=== PATIENT | male | born 1960 | race Caucasian/White ===

== ENCOUNTER → 2016-07-13 | Outpatient (CLI) | payer OTHER ==
[2016-05-08 19:38] VITALS: BP 143/98
[~2016-07-13] MED LIST: ALPR1TAB6 PO; GABA-586 PO; OXYC20TA PO; TAMS0.4C97 PO
--- NOTE | 2016-07-13 15:32 | KCIC ---
PROCEDURE Thoracic and lumbar spine radiographs. HISTORY Pain, post injury 3 weeks ago COMPARISON None FINDINGS Thoracic spine: Three views of the thoracic spine are submitted. There is mild mid thoracic levoscoliosis. Thoracic vertebral body stature and AP alignment are overall adequate by radiographs. There is mild inferior thoracic spondylosis. Lumbar spine radiographs: Five views of the lumbar spine are submitted. There is superior L1 compression deformity. There is multilevel lumbar facet degenerative change. There is multilevel mild lumbar spondylosis. There is atherosclerotic calcification of the abdominal aorta. IMPRESSION There is superior L1 compression deformity of uncertain chronicity. If there is point tenderness at this level, findings may be due to acute compression injury. Electronically signed by: Kan Vicente MD (Jul 13, 2016 15:30:37)
== END | disposition home or self-care (01) ==
LOC: KCIC 13:58
PROVIDERS: ATTEND Family Medicine
DX: M47.894 Other spondylosis, thoracic region (principal); I70.0 Atherosclerosis of aorta; S34.101A Unspecified injury to L1 level of lumbar spinal cord, initial encounter; M47.896 Other spondylosis, lumbar region; X58.XXXA Exposure to other specified factors, initial encounter; Y93.89 Activity, other specified; Y92.89 Other specified places as the place of occurrence of the external cause; Y99.8 Other external cause status
CPT/HCPCS: 72072; 72110

== ENCOUNTER → 2016-07-17 | Outpatient (CLI) | payer OTHER ==
[2016-05-08 19:38] VITALS: BP 143/98
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
== END | disposition home or self-care (01) ==
LOC: KCIC 11:12
PROVIDERS: ATTEND Family Medicine
DX: M54.9 Dorsalgia, unspecified (principal); V89.2XXA Person injured in unspecified motor-vehicle accident, traffic, initial encounter; Y93.89 Activity, other specified; Y92.89 Other specified places as the place of occurrence of the external cause; Y99.8 Other external cause status
CPT/HCPCS: 72050; 72072

== ENCOUNTER 2016-12-07 02:02 | Inpatient (IN) | payer MEDICARE, OTHER ==
[~2016-12-07] VITALS: Ht 208.3 cm; Wt 74.4 kg
[2016-12-07] VITALS (14 sets, daily range): BP systolic 104–158; BP diastolic 57–93
[2016-12-07] MEDS ORDERED: HALOPERIDOL LACTATE 5 MG/ML VIAL. ONE (02:14)
[2016-12-07] MEDS ORDERED: HALOPERIDOL LACTATE 5 MG/ML VIAL. IM ONE (02:30)
[2016-12-07] MEDS ORDERED: IV NORMAL SALINE 1000ML BAG 1,000 ML IV ONE (02:30)
[2016-12-07 02:46] LABS: BILIRUBIN,URINE NEGATIVE (NEG); GLUCOSE,URINE NEGATIVE (NEG); NITRITE,URINE NEGATIVE (NEG); PROTEIN,URINE 30 mg/dL (NEG-TRACE); UROBILINOGEN,URINE 0.2 mg/dL (0.2 mg/dL)
[2016-12-07 02:50] LABS: BARBITURATES NEG (NEG); BASO # 0.1 x10^3/uL (0.0-0.2); BASO % 1 % (0-3); BENZODIAZEPINES NEG (NEG); CANNABINOIDS POS (NEG); COCAINE NEG (NEG); EOS % 0 % (0-3); HEMOGLOBIN 16.7 g/dL (13.0-17.5); LYMPH # 3.7 x10^3/uL (1.0-4.8); LYMPH % 26 % (24-48); MEAN CORPUSCULAR HEMOGLOBIN 32 pg (25-35); MEAN CORPUSCULAR HGB CONC 33 g/dL (31-37); MEAN CORPUSCULAR VOLUME 95 fL (79-100); METHADONE NEG (NEG); MONO % 10 % (0-9); NEUT % 63 % (31-73); OPIATES NEG (NEG); PHENCYCLIDINE NEG (NEG); PLATELET COUNT 214 x10^3/uL (140-400); RED BLOOD COUNT 5.28 x10^6/uL (4.30-5.70); RED CELL DISTRIBUTION WIDTH 14.5 % (11.5-14.5); WHITE BLOOD COUNT 14.3 x10^3/uL (4.0-11.0)
[2016-12-07] MEDS ORDERED: MULTIVIT INFUSN,ADULT 4,VIT K 10 ML, FOLIC ACID 1 MG, THIAMINE 100 MG in IV NORMAL SALI... IV ONE (03:00)
[2016-12-07 03:04] LABS: ALBUMIN 4.6 g/dL (3.4-5.0); ALBUMIN/GLOBULIN RATIO 1.1 (1.0-1.7); CALCIUM 9.8 mg/dL (8.5-10.1); CREATININE 1.3 mg/dL (0.7-1.3); GFR 56.9; TOTAL BILIRUBIN 1.1 mg/dL (0.2-1.0); TOTAL PROTEIN 8.9 g/dL (6.4-8.2)
[2016-12-07 03:13] LABS: ETHANOL < 10 mg/dL (0-10)
[2016-12-07 03:15] LABS: POTASSIUM 2.8 mmol/L (3.5-5.1)
[2016-12-07] MEDS ORDERED: ACETAMINOPHEN 325 MG TABLET. PO PRN (03:30)
[2016-12-07] MEDS ORDERED: cloNIDine HCL 0.1 MG TABLET PO PRN (03:30)
[2016-12-07] MEDS ORDERED: HALOPERIDOL LACTATE 5 MG/ML VIAL. IVP PRN (03:30)
[2016-12-07] MEDS ORDERED: ONDANSETRON PF 4 MG/2 ML VIAL. IV PRN ×2 (03:30→07:31)
[2016-12-07] MEDS ORDERED: diphenhydrAMINE 50 MG/ML VIAL IVP PRN (03:30)
[2016-12-07 03:31] LABS: BACTERIA,URINE FEW /HPF (0-FEW); RBC,URINE 0 /HPF (0-2); SQUAMOUS EPITHELIAL CELL,UR FEW /LPF
--- NOTE | 2016-12-07 03:46 | RAD ---
CT head without contrast: Reason for examination: Altered mental status. Comparison is made to previous study dated 11/10/2015. Axial images were obtained through the brain. No contrast was administered. Exposure: One or more of the following individualized dose reduction techniques were utilized for this examination: 1. Automated exposure control 2. Adjustment of the mA and/or kV according to patient size 3. Use of iterative reconstruction technique. Ventricular systems are symmetric without midline shift. There is no evidence of intracranial hemorrhage or infarct. There is suggestion of some subtle decreased density in the right frontal lobe. Further evaluation with MRI should be considered. No other focal lesions are seen in the brain. No abnormalities are seen at the orbits. The paranasal sinuses are clear. Mastoid air cells are clear. No acute abnormality seen in the skull. There are postop changes anterior to the frontal sinuses. IMPRESSION: Subtle decreased density suggested in the right frontal lobe. Further evaluation with MRI should be considered. No other focal abnormalities seen in the brain. Electronically signed by: Yesenia Ybarra MD (12/07/2016 3:43 AM)
[2016-12-07] MEDS: POTASSIUM CHLORIDE 10MEQ 100 ML IV SCH ×4 (04:37→09:47)
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
[2016-12-07] MEDS: IV NORMAL SALINE 1000ML BAG 1,000 ML IV SCH ×3 (05:13→22:21)
[2016-12-07] MEDS ORDERED: PNEUMOCOCCAL VAX SCREEN BY RX. MC ONE (06:15)
--- NOTE | 2016-12-07 06:18 | EKG ---
[facility] [address] [place] [id number] Test Date: 2016-12-07 Test Time: 02:08:32 Pat Name: BEAN HERRERA Department: Room: 110 1 Gender: M [employer] Controller: CARI EMT : 1960 Requested By: ANNAMARIA US Order Number: [id number] Reading MD: Abi Rubi Measurements Intervals [place] Rate: 108 P: WI: QRS: -71 QRSD: 128 T: 28 QT: 340 QTc: 459 Interpretive Statements SINUS TACHYCARDIA ABNORMAL LEFT AXIS DEVIATION NON SPECIFIC INTRAVENTRICULAR BLOCK RVH WITH REPOLARIZATION ABNORMALITY QRS(T) CONTOUR ABNORMALITY CONSIDER INFERIOR MYOCARDIAL DAMAGE RI6.01 Unconfirmed report No previous ECG available for comparison Electronically Signed On 12-10-2016 22:18:59 CDT by Abi Rubi
--- NOTE | 2016-12-07 07:03 | RAD ---
Portable chest, 12/07/2016: History: Altered mental status The heart size and pulmonary vascularity are normal. No pulmonary infiltrates are seen. There is no evidence of pleural fluid. IMPRESSION: No acute cardiopulmonary abnormality is detected.
[2016-12-07] MEDS ORDERED: ALPRAZolam 1 MG TABLET PO PRN (07:45)
[2016-12-07] MEDS ORDERED: oxyCODONE IR 5 MG TABLET PO PRN (07:45)
--- NOTE | 2016-12-07 08:09 | PDOC1 ---
History and Physical Date of Admission Date of Admission DATE: 12/07/16 TIME: 08:07 Identification/Chief Complaint Chief Complaint confusion, erratic behavior Problems: Source Source: Caregiver, Chart review, Patient History of Present Illness History of Present Illness 56 y.o poor historian as is still clearly confused as I see him in ICU today, Was sent in by EMS when his 2 friends whom he has been living with in a hotel room, noticed him to have erratic behavior, aggressive,EMS found him in the bathroom with erratic behavior. He is unable to provide history due to clinical condition. Today he mentions [place], restless, sitter at bedside, ON CIWA. ETOH < 10, UDS neg, UA ,clean, labs elevated LFTs, mild hypokalemia (3.2) and WBC 14. Crea 0.9 Past Medical History Cardiovascular: CHF, HTN Renal/: Prostate Ca. Past Surgical History Past Surgical History: Other (unknown) Family History Family History: Family History Unknown Social History Smoke: No ALCOHOL: heavy Drugs: Other (amphetamines) Current Problem List Problem List Problems Medical Problems: (1) Alcohol withdrawal delirium Status: Acute (2) Hypertension Status: Acute (3) Hypokalemia Status: Acute (4) Right frontal lobe lesion Status: Acute (5) Tachycardia Status: Acute Problems: Current Medications Current Medications Current Medications Haloperidol Lactate (Haldol) 5 mg STK-MED ONCE .ROUTE ; Start 12/07/16 at 02:14; Stop 12/07/16 at 02:15; Status DC Lorazepam (Ativan) 2 mg STK-MED ONCE .ROUTE ; Start 12/07/16 at 02:15; Stop at 02:16; Status DC Haloperidol Lactate (Haldol) 5 mg 1X ONCE IM Last administered on 12/07/16 02: 30; Start 12/07/16 at 02:30; Stop 12/07/16 at 02:31; Status DC Lorazepam (Ativan) 1 mg 1X ONCE IM Last administered on 12/07/16 02:30; Start 12/07/16 at 02:30; Stop 12/07/16 at 02:31; Status DC Sodium Chloride 1,000 ml @ 1,000 mls/hr 1X ONCE IV Last administered on 03:00; Start 12/07/16 at 02:30; Stop 12/07/16 at 03:29; Status DC Diazepam (Valium) 5 mg 1X ONCE IV Last administered on 12/07/16 02:55; Start 12/07/16 at 02:45; Stop 12/07/16 at 02:46; Status DC Multivitamins 10 ml/Folic Acid 1 mg/Thiamine HCl 100 mg/Sodium Chloride 1,011.2 ml @ 1,000 mls/ hr 1X ONCE IV Last administered on 12/07/16 03:07; Start 12/07 at 03:00; Stop 12/07/16 at 04:00; Status DC Ondansetron HCl (Zofran) 4 mg PRN Q8HRS PRN IV NAUSEA/VOMITING; Start 12/07/16 at 03:30; Stop 12/07/16 at 07:33; Status DC Sodium Chloride 1,000 ml @ 125 mls/hr Q8H IV Last administered on 12/07/16 05: 13; Start 12/07/16 at 03:30; Stop 12/08/16 at 03:29 Acetaminophen (Tylenol) 650 mg PRN Q4HRS PRN PO FEVER; Start 12/07/16 at 03:30; Stop 12/08/16 at 03:29 Multivitamins 10 ml/Thiamine HCl 100 mg/Folic Acid 1 mg/Sodium Chloride 1,011.2 ml @ 100 mls/ hr DAILY IV ; Start 12/07/16 at 09:00; Stop 12/12/16 at 08:59 Haloperidol Lactate (Haldol) 5 mg PRN Q4HRS PRN IVP Hallucinatns,Confusn, Delirium; Start 12/07/16 at 03:30 Diphenhydramine HCl (Benadryl) 25 mg PRN Q15MIN PRN IVP EPS symptoms 2'Haldol admin; Start 12/07/16 at 03:30 Clonidine HCl (Catapres) 0.1 mg PRN Q1HR PRN PO SBP > 180 or DBP > 100, MRX3; Start 12/07/16 at 03:30 Diazepam (Valium) 5 mg PRN Q5MIN PRN IV COMM; Start 12/07/16 at 03:30 Diazepam (Valium) 10 mg PRN Q5MIN PRN IV COMM Last administered on 12/07/16 05: 42; Start 12/07/16 at 03:30 Potassium Chloride 100 ml @ 100 mls/hr Q1H IV Last administered on 12/07/16 07 :20; Start 12/07/16 at 04:30; Stop 12/07/16 at 08:29 Pneumococcal Polyvalent Vaccine (Do NOT chart on this placeholder) 1 each 1X ONCE MC ; Start 12/07/16 at 06:15; Stop 12/07/16 at 06:16; Status UNV Pneumococcal Polyvalent Vaccine (Pneumovax 23) 0.5 ml ONCE ONCE VAX IM ; Start 12/07/16 at 09:00; Stop 12/07/16 at 09:01 Ondansetron HCl (Zofran) 4 mg PRN Q6HRS PRN IV NAUSEA/VOMITING; Start 12/07/16 at 07:31; Stop 12/08/16 at 07:30 Alprazolam (Xanax) 1 mg PRN Q6HRS PRN PO ANXIETY / AGITATION; Start 12/07/16 at 07:45 Tamsulosin HCl (Flomax) 0.4 mg DAILY PO ; Start 12/07/16 at 09:00 Gabapentin (Neurontin) 300 mg TID PO ; Start 12/07/16 at 09:00 Oxycodone HCl (Roxicodone) 20 mg PRN Q6HRS PRN PO PAIN; Start 12/07/16 at 07:45 Active Scripts Active Reported Flomax (Tamsulosin Hcl) 0.4 Mg Cap.er.24h 0.4 Mg PO DAILY Alprazolam 1 Mg Tablet 1 Mg PO PRN Q6HRS PRN Neurontin (Gabapentin) 300 Mg Capsule 300 Mg PO TID Oxycodone Hcl 20 Mg Tablet 20 Mg PO PRN QID PRN Allergies Allergies: Coded Allergies: fentanyl (Unverified Adverse Reaction, Intermediate, "patches give me headches", 05/08/16) ROS Review of System cant assess, confused Physical Exam General: Alert, Cooperative, No acute distress, Other HEENT: PERRLA, EOMI Lungs: Clear to auscultation, Normal air movement Heart: S1S2, RRR, no thrills, no rubs, no gallops Cardiovascular: S1, S2 Abdomen: Normal bowel sounds, Soft, No tenderness, No hepatosplenomegaly, No masses Male Genitals Exam: normal genitalia, normal prostate Rectal Exam: not examined PELVIC: Nml ext genitalia Extremities: No clubbing, No cyanosis, No edema, Normal pulses, No tenderness/ swelling Skin: No rashes, No breakdown, No significant lesion Neuro: Normal gait, Normal speech, Strength at 5/5 X4 ext, Normal tone, Sensation intact, Cranial nerves 3-12 NL, Reflexes 2+ Psych/Mental Status: Other (confused) Vitals Vitals Vital Signs Date Time Temp Pulse Resp B/P (MAP) Pulse Ox O2 Delivery O2 Flow Rate FiO2 12/07/16 07:21 98.0 85 16 126/88 (101) 98 Room Air 98.0 Labs Labs Laboratory Tests Test 12/07/16 02:22 White Blood Count 14.3 x10^3/uL (4.0-11.0) Red Blood Count 5.28 x10^6/uL (4.30-5.70) Hemoglobin 16.7 g/dL (13.0-17.5) Hematocrit 50.0 % (39.0-53.0) Mean Corpuscular Volume 95 fL (79-100) Mean Corpuscular Hemoglobin 32 pg (25-35) Mean Corpuscular Hemoglobin Concent 33 g/dL (31-37) Red Cell Distribution Width 14.5 % (11.5-14.5) Platelet Count 214 x10^3/uL (140-400) Neutrophils (%) (Auto) 63 % (31-73) Lymphocytes (%) (Auto) 26 % (24-48) Monocytes (%) (Auto) 10 % (0-9) Eosinophils (%) (Auto) 0 % (0-3) Basophils (%) (Auto) 1 % (0-3) Neutrophils # (Auto) 9.0 x10^3uL (1.8-7.7) Lymphocytes # (Auto) 3.7 x10^3/uL (1.0-4.8) Monocytes # (Auto) 1.5 x10^3/uL (0.0-1.1) Eosinophils # (Auto) 0.0 x10^3/uL (0.0-0.7) Basophils # (Auto) 0.1 x10^3/uL (0.0-0.2) Urine Collection Type Unknown Urine Color Thelma Urine Clarity Clear Urine pH 6.0 Urine Specific [place] 1.025 Urine Protein 30 mg/dL (NEG-TRACE) Urine Glucose (UA) Negative mg/dL (NEG) Urine Ketones (Stick) Negative mg/dL (NEG) Urine Blood Negative (NEG) Urine Nitrite Negative (NEG) Urine Bilirubin Negative (NEG) Urine Urobilinogen Dipstick 0.2 mg/dL (0.2 mg/dL) Urine Leukocyte Esterase Negative (NEG) Urine RBC 0 /HPF (0-2) Urine WBC 1-4 /HPF (0-4) Urine Squamous Epithelial Cells Few /LPF Urine Bacteria Few /HPF (0-FEW) Urine Hyaline Casts Few /HPF Urine Mucus Marked /LPF Sodium Level 140 mmol/L (136-145) Potassium Level 2.8 mmol/L (3.5-5.1) Chloride Level 98 mmol/L (98-107) Carbon Dioxide Level 23 mmol/L (21-32) Anion Gap 19 (6-14) Blood Urea Nitrogen 17 mg/dL (8-26) Creatinine 1.3 mg/dL (0.7-1.3) Estimated GFR (Cockcroft-Gault) 56.9 BUN/Creatinine Ratio 13 (6-20) Glucose Level 152 mg/dL (70-99) Calcium Level 9.8 mg/dL (8.5-10.1) Total Bilirubin 1.1 mg/dL (0.2-1.0) Aspartate Amino Transf (AST/SGOT) 20 U/L (15-37) Alanine Aminotransferase (ALT/SGPT) 33 U/L (16-63) Alkaline Phosphatase 69 U/L (46-116) Troponin I Quantitative < 0.017 ng/mL (0.000-0.055) EK-Lvh-C-Type Natriuretic Peptide 98 pg/mL (0-124) Total Protein 8.9 g/dL (6.4-8.2) Albumin 4.6 g/dL (3.4-5.0) Albumin/Globulin Ratio 1.1 (1.0-1.7) Thyroid Stimulating Hormone (TSH) 2.141 uIU/mL (0.358-3.74) Salicylates Level 3.8 mg/dL (2.8-20.0) Salicylate Last Dose Date Unknown Salicylate Last Dose Time Unknown Urine Opiates Screen Neg (NEG) Urine Methadone Screen Neg (NEG) Acetaminophen Level < 2 mcg/ml (10-30) Acetaminophen Last Dose Date Unknown Acetaminophen Last Dose Time Unknown Urine Barbiturates Neg (NEG) Urine Phencyclidine Screen Neg (NEG) Urine Amphetamine/Methamphetamine Pos (NEG) Urine Benzodiazepines Screen Neg (NEG) Urine Cocaine Screen Neg (NEG) Urine Cannabinoids Screen Pos (NEG) Ethyl Alcohol Level < 10 mg/dL (0-10) Urine Ethyl Alcohol Neg (NEG) Laboratory Tests Test 12/07/16 02:22 White Blood Count 14.3 x10^3/uL (4.0-11.0) Red Blood Count 5.28 x10^6/uL (4.30-5.70) Hemoglobin 16.7 g/dL (13.0-17.5) Hematocrit 50.0 % (39.0-53.0) Mean Corpuscular Volume 95 fL (79-100) Mean Corpuscular Hemoglobin 32 pg (25-35) Mean Corpuscular Hemoglobin Concent 33 g/dL (31-37) Red Cell Distribution Width 14.5 % (11.5-14.5) Platelet Count 214 x10^3/uL (140-400) Neutrophils (%) (Auto) 63 % (31-73) Lymphocytes (%) (Auto) 26 % (24-48) Monocytes (%) (Auto) 10 % (0-9) Eosinophils (%) (Auto) 0 % (0-3) Basophils (%) (Auto) 1 % (0-3) Neutrophils # (Auto) 9.0 x10^3uL (1.8-7.7) Lymphocytes # (Auto) 3.7 x10^3/uL (1.0-4.8) Monocytes # (Auto) 1.5 x10^3/uL (0.0-1.1) Eosinophils # (Auto) 0.0 x10^3/uL (0.0-0.7) Basophils # (Auto) 0.1 x10^3/uL (0.0-0.2) Urine Collection Type Unknown Urine Color Thelma Urine Clarity Clear Urine pH 6.0 Urine Specific [place] 1.025 Urine Protein 30 mg/dL (NEG-TRACE) Urine Glucose (UA) Negative mg/dL (NEG) Urine Ketones (Stick) Negative mg/dL (NEG) Urine Blood Negative (NEG) Urine Nitrite Negative (NEG) Urine Bilirubin Negative (NEG) Urine Urobilinogen Dipstick 0.2 mg/dL (0.2 mg/dL) Urine Leukocyte Esterase Negative (NEG) Urine RBC 0 /HPF (0-2) Urine WBC 1-4 /HPF (0-4) Urine Squamous Epithelial Cells Few /LPF Urine Bacteria Few /HPF (0-FEW) Urine Hyaline Casts Few /HPF Urine Mucus Marked /LPF Sodium Level 140 mmol/L (136-145) Potassium Level 2.8 mmol/L (3.5-5.1) Chloride Level 98 mmol/L (98-107) Carbon Dioxide Level 23 mmol/L (21-32) Anion Gap 19 (6-14) Blood Urea Nitrogen 17 mg/dL (8-26) Creatinine 1.3 mg/dL (0.7-1.3) Estimated GFR (Cockcroft-Gault) 56.9 BUN/Creatinine Ratio 13 (6-20) Glucose Level 152 mg/dL (70-99) Calcium Level 9.8 mg/dL (8.5-10.1) Total Bilirubin 1.1 mg/dL (0.2-1.0) Aspartate Amino Transf (AST/SGOT) 20 U/L (15-37) Alanine Aminotransferase (ALT/SGPT) 33 U/L (16-63) Alkaline Phosphatase 69 U/L (46-116) Troponin I Quantitative < 0.017 ng/mL (0.000-0.055) SG-Tsw-Y-Type Natriuretic Peptide 98 pg/mL (0-124) Total Protein 8.9 g/dL (6.4-8.2) Albumin 4.6 g/dL (3.4-5.0) Albumin/Globulin Ratio 1.1 (1.0-1.7) Thyroid Stimulating Hormone (TSH) 2.141 uIU/mL (0.358-3.74) Salicylates Level 3.8 mg/dL (2.8-20.0) Salicylate Last Dose Date Unknown Salicylate Last Dose Time Unknown Urine Opiates Screen Neg (NEG) Urine Methadone Screen Neg (NEG) Acetaminophen Level < 2 mcg/ml (10-30) Acetaminophen Last Dose Date Unknown Acetaminophen Last Dose Time Unknown Urine Barbiturates Neg (NEG) Urine Phencyclidine Screen Neg (NEG) Urine Amphetamine/Methamphetamine Pos (NEG) Urine Benzodiazepines Screen Neg (NEG) Urine Cocaine Screen Neg (NEG) Urine Cannabinoids Screen Pos (NEG) Ethyl Alcohol Level < 10 mg/dL (0-10) Urine Ethyl Alcohol Neg (NEG) VTE Prophylaxis Ordered VTE Prophylaxis Devices: Yes VTE Pharmacological Prophylaxi: Yes Assessment/Plan Assessment/Plan 1. Acute encephalopathy2 2. HEavy alcohol drinking 3. Agitation 4,. Hypokalemia 5. REactive leukocytosis 6. SIRS no sepsis 7. ELevated LFTS in etohic 8. BELL, vasomotor PLAN: OK to t.o ICU Keep sitter for now PT/OT OK for regular diet Current IVF to consume CAnt go home unless family brings him home SW AA referral COnt LUKEWA RICH Moulton MD Dec 07, 2016 08:09
[2016-12-07] MEDS ORDERED: MULTIVIT INFUSN,ADULT 4,VIT K 10 ML, THIAMINE 100 MG, FOLIC ACID 1 MG in IV NORMAL SALI... IV SCH (09:00)
[2016-12-07] MEDS ORDERED: PNEUMOC CONJ VACC 23-VALENT 0.5 ML VIAL. VAX IM ONE (09:00)
[2016-12-07] MEDS: TAMSULOSIN 0.4 MG CAP.ER.24H. PO SCH (09:49)
[2016-12-07] MEDS: GABAPENTIN 300 MG CAPSULE. PO SCH ×3 (09:49→20:51)
[2016-12-08 03:47] VITALS: BP 143/86
[2016-12-08 04:12] LABS: BASO # 0.1 x10^3/uL (0.0-0.2); BASO % 1 % (0-3); EOS % 1 % (0-3); HEMOGLOBIN 14.7 g/dL (13.0-17.5); LYMPH % 27 % (24-48); MEAN CORPUSCULAR HEMOGLOBIN 32 pg (25-35); MEAN CORPUSCULAR HGB CONC 33 g/dL (31-37); MEAN CORPUSCULAR VOLUME 96 fL (79-100); MONO % 9 % (0-9); NEUT % 62 % (31-73); PLATELET COUNT 174 x10^3/uL (140-400); RED BLOOD COUNT 4.61 x10^6/uL (4.30-5.70); RED CELL DISTRIBUTION WIDTH 14.2 % (11.5-14.5); WHITE BLOOD COUNT 11.1 x10^3/uL (4.0-11.0)
[2016-12-08 04:23] LABS: CALCIUM 8.6 mg/dL (8.5-10.1); CREATININE 0.9 mg/dL (0.7-1.3)
[2016-12-08 04:34] LABS: POTASSIUM 2.9 mmol/L (3.5-5.1)
[2016-12-08] MEDS: POTASSIUM CHLORIDE 10MEQ 100 ML IV SCH ×4 (05:15→09:27)
[2016-12-08 07:56] VITALS: BP 154/97
[2016-12-08] MEDS: TAMSULOSIN 0.4 MG CAP.ER.24H. PO SCH (08:01)
[2016-12-08] MEDS: POTASSIUM CHLORIDE 20 MEQ TABLET.ER. PO SCH ×2 (08:01→14:31)
[2016-12-08] MEDS: GABAPENTIN 300 MG CAPSULE. PO SCH ×2 (08:01→14:31)
[2016-12-08 11:00] VITALS: BP 138/66
--- NOTE | 2016-12-08 23:24 | DS ---
DATE OF DISCHARGE: 12/08/2016 ADMISSION DIAGNOSIS: Alcohol withdrawal. DISCHARGE DIAGNOSIS: Resolving alcohol withdrawal. HOSPITAL COURSE: The patient is a pleasant 56-year-old male who presented with alcohol withdrawal and was actually intoxicated as well. We admitted the patient. , we gave him benzos and vitamins. This morning, he is doing better. I did see the patient and examine him this morning. His heart tones were normal. His lungs were clear. His abdomen was soft. Extremities, no edema. Skin, no rashes. We plan to discharge. DISPOSITION: Home. ACTIVITY: As tolerated. DIET: Low sodium. MEDICATIONS: Please see the MRAD. TOTAL TIME ON DISCHARGE: 31 minutes. CATRACHO PINA DO DR: MAGDI/mehul JOB#: [id number] / [id number]
== END 2016-12-08 14:45 | disposition home or self-care (01) | DRG 896 ==
LOC: ER 02:02 → 1 WEST ICU 02:43 → 6 SOUTH 13:53
PROVIDERS: ADMIT Internal Medicine; ATTEND Internal Medicine
DX: F10.231 Alcohol dependence with withdrawal delirium (principal); N17.0 Acute kidney failure with tubular necrosis; G93.40 Encephalopathy, unspecified; R65.10 Systemic inflammatory response syndrome (SIRS) of non-infectious origin without acute organ dysfunction; I11.0 Hypertensive heart disease with heart failure; I50.9 Heart failure, unspecified; E87.6 Hypokalemia; Y90.0 Blood alcohol level of less than 20 mg/100 ml; D72.828 Other elevated white blood cell count; F10.221 Alcohol dependence with intoxication delirium; Z85.46 Personal history of malignant neoplasm of prostate; Z79.899 Other long term (current) drug therapy; Z79.1 Long term (current) use of non-steroidal anti-inflammatories (NSAID); Z88.8 Allergy status to other drugs, medicaments and biological substances
CPT/HCPCS: 36415; 70450; 71010; 80048; 80053; 80329; 81001; 83880; 84443; 84484; 85027; 87641; 90732; 93005; 96372; 96374; 96375; G0480; G0481; J1630; J2060; J3360; J3480; J7030; 99291-25

== ENCOUNTER → 2017-04-06 | Outpatient (CLI) | payer OTHER ==
--- NOTE | 2017-04-06 12:59 | RAD ---
Bilateral lower extremity venous ultrasound, 04/05/2017: History: Bilateral leg pain and swelling Duplex evaluation of the deep veins in the lower extremities was performed including grayscale, color-flow and spectral Doppler analysis. The femoral and popliteal veins demonstrate normal compressibility and normal responses to distal augmentation maneuvers. Color imaging of those vessels shows no evidence of intraluminal clot. The visualized deep veins in both calves are patent. IMPRESSION: There is no sonographic evidence of deep vein thrombosis in either lower extremity.
== END | disposition home or self-care (01) ==
LOC: US 12:16
PROVIDERS: ATTEND Family Medicine
DX: M79.605 Pain in left leg (principal); M79.604 Pain in right leg; M79.89 Other specified soft tissue disorders; R22.43 Localized swelling, mass and lump, lower limb, bilateral
CPT/HCPCS: 93970

== ENCOUNTER → 2017-07-01 | Outpatient (CLI) | payer OTHER | END | disposition home or self-care (01) | LOC: MRI 15:45 | DX: M47.896 Other spondylosis, lumbar region (principal); M12.88 Other specific arthropathies, not elsewhere classified, other specified site; M51.27 Other intervertebral disc displacement, lumbosacral region; M50.30 Other cervical disc degeneration, unspecified cervical region | CPT/HCPCS: 72148 ==

== ENCOUNTER → 2017-08-16 | Outpatient (CLI) | payer OTHER | END | disposition home or self-care (01) | LOC: MRI 14:22 | DX: M48.56XD Collapsed vertebra, not elsewhere classified, lumbar region, subsequent encounter for fracture with routine healing (principal); M48.02 Spinal stenosis, cervical region; M50.322 Other cervical disc degeneration at C5-C6 level; M51.36 Other intervertebral disc degeneration, lumbar region | CPT/HCPCS: 72141; 72148 ==